=== PATIENT | female | born 1960 | race Caucasian/White ===

== ENCOUNTER 2017-08-28 15:27 | Emergency (ER) | payer OTHER ==
[2017-08-28 15:27] VITALS: BMI 22.3
[2017-08-28 15:54] VITALS: TEMP 98.7; O2SAT 96
--- NOTE | 2017-08-28 17:14 | RAD ---
PROCEDURE: Left Foot Radiographs. No HISTORY: foot pain s/p trauna COMPARISON: None. FINDINGS: BONES: No evidence of acute displaced fracture nor dislocation. Very tiny posterior and plantar calcaneal enthesophytes are present. JOINTS: Normal. SOFT TISSUES: Questionable minimal dorsal soft tissue swelling. OTHER FINDINGS: None. IMPRESSION: No evidence of acute displaced fracture nor dislocation.
--- NOTE | 2017-08-28 17:24 | ED PDOC ---
Arrival/HPI - General Chief Complaint: Lower Extremity Problem/Injury Time Seen by Provider: 08/28/17 15:47 Historian: Patient - History of Present Illness Narrative History of Present Illness (Text): 08/28/17 17:15 57yo male with pmhx of hypertension, diabetes and HCL who present with complaint of left knee and foot pain s/p trauma last night. Patient states she tripped over a carpet last night and injured her foot and knee. States she came to the ED with the persistent pain. Notes worse pain on her foot. States she took Tylenol earlier with some temporary relieve. She denies LOC, hitting her head anywhere, dizziness, headache, focal weakness, any other complaint. Past Medical History - Provider Review Nursing Documentation Reviewed: Yes - Cardiac Hx Cardiac Disorders: Yes Hx Hypertension: Yes - Pulmonary Hx Respiratory Disorders: Yes Hx Bronchitis: Yes - Neurological Hx Neurological Disorder: No - HEENT Hx HEENT Disorder: No - Renal Hx Renal Disorder: No - Endocrine/Metabolic Hx Endocrine Disorders: Yes Hx Diabetes Mellitus Type 2: Yes - Hematological/Oncological Hx Blood Disorders: No - Integumentary Hx Dermatological Disorder: No - Musculoskeletal/Rheumatological Hx Arthritis: Yes Hx Herniated Disk: Yes - Gastrointestinal Hx Gastrointestinal Disorders: No - Genitourinary/Gynecological Hx Genitourinary Disorders: No - Psychiatric Hx Psychophysiologic Disorder: No Hx Depression: No Hx Emotional Abuse: No Hx Physical Abuse: No Hx Substance Use: No - Surgical History Hx Appendectomy: Yes Hx Section: Yes Hx Orthopedic Surgery: Yes (R KNEE) - Suicidal Assessment Feels Threatened In Home Enviroment: No Family/Social History - Physician Review Nursing Documentation Reviewed: Yes Family/Social History: Unknown Family HX Smoking Status: Never Smoked Hx Alcohol Use: No Hx Substance Use: No Allergies/Home Meds Allergies/Adverse Reactions: Allergies Penicillins Allergy (Verified 08/28/17 15:43) SWELLING Home Medications: Home Meds Medication Instructions Recorded Confirmed Amlodipine Besylate 10 mg PO DAILY 07/10/12 08/28/17 Baclofen 20 mg PO HS 07/10/12 08/28/17 Bisoprolol Fumarate/Hctz 1 tab PO DAILY 07/10/12 08/28/17 [Bisoprolol/Hctz 2.5 mg-6.25 mg] Gabapentin 300 mg PO TID 07/10/12 08/28/17 Glipizide [Glipizide Xl] 5 mg PO TID 07/10/12 08/28/17 Ibuprofen [Motrin] 800 mg PO BID 07/10/12 08/28/17 Omeprazole 20 mg PO DAILY 07/10/12 08/28/17 Acarbose [Acarbose] 25 mg PO TID 09/18/15 08/28/17 Alendronate [Fosamax] 1 tab PO .WEEKLY 09/18/15 08/28/17 Aspirin [Aspirin Chewable] 81 mg PO DAILY 09/18/15 08/28/17 Ergocalciferol (Vitamin D2) 1 tab PO .WEEKLY 09/18/15 08/28/17 [Vitamin D2] Naproxen [Naprosyn] 500 mg PO BID 09/18/15 08/28/17 OXcarbazepine [Trileptal] 1 tab PO BID 09/18/15 08/28/17 Pravastatin Sodium [Pravachol] 1 tab PO DAILY 09/18/15 08/28/17 Mv,Min10/Folic Acid/D3/Ala/Lut 1 tab PO DAILY 08/28/17 08/28/17 [Strovite One Caplet] Ondansetron [Zofran Tab] 4 mg PO Q6 PRN 08/28/17 08/28/17 Review of Systems - Physician Review All systems were reviewed & negative as marked: Yes - Review of Systems Constitutional: Normal Eyes: Normal ENT: Normal Respiratory: Normal Cardiovascular: Normal Gastrointestinal: Normal Genitourinary Female: Normal Musculoskeletal: Arthralgias (knee/foot pain) Skin: Normal Neurological: Normal Endocrine: Normal Hemo/Lymphatic: Normal Psychiatric: Normal Physical Exam Vital Signs Reviewed: Yes Vital Signs Temp Pulse Resp BP Pulse Ox 08/28/17 18:18 70 16 118/70 08/28/17 15:49 98.7 F 62 17 136/67 96 Temperature: Afebrile Blood Pressure: Normal Pulse: Regular Respiratory Rate: Normal Appearance: Positive for: Well-Appearing, Non-Toxic, Comfortable Pain Distress: None Mental Status: Positive for: Alert and Oriented X 3 - Systems Exam Head: Present: Atraumatic, Normocephalic Pupils: Present: PERRL Extroacular Muscles: Present: EOMI Conjunctiva: Present: Normal Mouth: Present: Moist Mucous Membranes Neck: Present: Normal Range of Motion Respiratory/Chest: Present: Clear to Auscultation, Good Air Exchange. No: Respiratory Distress, Accessory Muscle Use Cardiovascular: Present: Regular Rate and Rhythm, Normal S1, S2. No: Murmurs Abdomen: No: Tenderness, Distention, Peritoneal Signs Back: Present: Normal Inspection Upper Extremity: Present: Normal Inspection. No: Cyanosis, Edema Lower Extremity: Present: NORMAL PULSES, Normal ROM, Tenderness (Left knee, ankle and plantar foot), Neurovascularly Intact. No: Edema, CALF TENDERNESS, Swelling, Deformity Neurological: Present: GCS=15, CN II-XII Intact, Speech Normal Skin: Present: Warm, Dry, Normal Color. No: Rashes Psychiatric: Present: Alert, Oriented x 3, Normal Insight, Normal Concentration Medical Decision Making ED Course and Treatment: 08/28/17 19:44 Pt's in ED for stated history. Left knee/foot xray - No acute fracture/dislocation Pt came to ED with a cane and knee brace that she have at home Air cast was placed Result was DW the pt and she was advised to RICE knee/ankle. Referred to ortho - RAD Interpretation Radiology Orders: 08/28/17 15:56 FOOT LEFT 3 VIEWS ROUTINE [RAD] Stat KNEE WITH PATELLA LEFT 3 VIEW [RAD] Stat - Medication Orders Current Medication Orders: Discontinued Medications Ketorolac Tromethamine (Toradol) 60 mg IM STAT STA Stop: 08/28/17 15:57 Last Admin: 08/28/17 16:21 Dose: Not Given Non-Admin Reason: Patient Refused Disposition/Present on Arrival - Present on Arrival Any Indicators Present on Arrival: No History of DVT/PE: No History of Uncontrolled Diabetes: No Urinary Catheter: No History of Decub. Ulcer: No History Surgical Site Infection Following: None - Disposition Have Diagnosis and Disposition been Completed?: Yes Diagnosis: Knee sprain, Foot sprain Disposition: HOME/ ROUTINE Disposition Time: 17:25 Patient Plan: Discharge Condition: STABLE Discharge Instructions (ExitCare): Knee Sprain (DC), Foot Sprain (DC) Additional Instructions: Rest knee/foot, ice, compress and elevate Follow up with your doctor/Orthopedist Return to ED for any new or worsening symptoms Prescriptions: Naproxen [Naprosyn] 500 mg PO BID #20 tab Referrals: Kat Hatch MD [Primary Care Provider] - Follow up with primary Rocyk Zimmerman MD [Staff Provider] - Follow up with primary Forms: [employer] ([place])
--- NOTE | 2017-08-28 17:51 | RAD ---
PROCEDURE: Left Knee Radiographs. HISTORY: Pain. COMPARISON: None. FINDINGS: BONES: There is narrowing of the medial joint space compartment with periarticular osteophyte formation. No fracture identified. JOINTS: No dislocation seen. JOINT EFFUSION: There is no significant joint effusion. OTHER FINDINGS: None. IMPRESSION: No fracture or dislocation identified.
[2017-08-28 18:20] VITALS: BP 118/70; PULSE 70; RESP 16
== END 2017-08-28 18:18 | disposition home or self-care (01) ==
LOC: ED 15:27
DX: S83.92XA Sprain of unspecified site of left knee, initial encounter (principal); S93.602A Unspecified sprain of left foot, initial encounter; W01.0XXA Fall on same level from slipping, tripping and stumbling without subsequent striking against object, initial encounter; Y92.89 Other specified places as the place of occurrence of the external cause